=== PATIENT | male | born 1950 | race Two or more races ===

== ENCOUNTER 2024-08-05 21:29 | Emergency (ER) | payer OTHER ==
[~2024-08-05] VITALS: Ht 172.7 cm; Wt 84.0 kg
[2024-08-05 22:00] VITALS: TEMP 98
--- NOTE | 2024-08-05 22:10 | ED.PDOC ---
History of Present Illness HPI Comments 74 y/o MGUILHERME presents to the ED for CC of ear bleeding. EMS reports, patient is coming from home where he complains of uncontrollable bleeding from the right ear at a site where the patient had a Mohs procedure performed several days ago.. 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 EMS endorses, approximately 100mL of blood loss. Patient denies dizziness or weakness. No other symptoms or modifying factors present at this time. Patient arrives with a mildly active bleed. Chief Complaint: Laceration Time Seen by MD: 22:00 Reviewed Notes: Nurses Notes, Head Animal Trainer Notes, Medications, Allergies Allergies: Coded Allergies: Ceftriaxone (Verified Allergy, Unknown, 08/05/24) Cephalexin (Verified Allergy, Unknown, 08/05/24) Information Source: Patient, Emergency Med Personnel Mode of Arrival: EMS Severity: Moderate Timing: Minutes Duration: Since onset Prehospital treatment: None Past Medical History PAST MEDICAL HISTORY: Cancer Surgical History: Denies all surgeries Family History Family History: Unknown Social History Smoker: Non-Smoker Alcohol: Denies ETOH Use Drugs: Denies Drug Use Lives In: Home Constitutional: denies: chills, diaphoresis, fatigue, fever, malaise, sweats, weakness, others EENTM: reports: ear bleeding; denies: blurred vision, double vision, ear discharge, ear drainage, ear pain, ear ringing, eye pain, eye redness, hearing loss, mouth pain, mouth swelling, nasal discharge, nose bleeding, nose congestion, nose pain, photophobia, tearing, throat pain, throat swelling, voice changes, others Respiratory: denies: cough, hemoptysis, orthopnea, SOB at rest, shortness of breath, SOB with excertion, stridor, wheezing, others Cardiovascular: denies: chest pain, dizzy spells, diaphoresis, Dyspnea on exertion, edema, irregular heart beat, left arm pain, lightheadedness, palpitations, PND, syncope, others Gastrointestinal: denies: abdomen distended, abdominal pain, blood streaked bowels, constipated, diarrhea, dysphagia, difficulty swallowing, hematemesis, melena, nausea, poor appetite, poor fluid intake, rectal bleeding, rectal pain, vomiting, others Genitourinary: denies: burning, dysuria, flank pain, frequency, hematuria, incontinence, penile discharge, penile sore, pain, testicle pain, testicle swelling, urgency, others Neurological: denies: dizziness, fainting, headache, left sided numbness, left sided weakness, numbness, paresthesia, pre-existing deficit, right sided numbness, right sided weakness, seizure, speech problems, tingling, tremors, weakness, others Musculoskeletal: denies: back pain, gout, joint pain, joint swelling, muscle pain, muscle stiffness, neck pain, others Integumetry: denies: bruises, change in color, change in hair/nails, dryness, laceration, lesions, lumps, rash, wounds, others Allergic/Immunocompromised: denies: Difficulty Healing, Frequent Infections, Hives, Itching, others Hematologic/Lymphatic: denies: anemia, blood clots, easy bleeding, easy bruising, swollen glands, others Endocrine: denies: excessive hunger, excessive sweating, excessive thirst, excessive urination, flushing, intolerance to cold, intolerance to heat, unexplained weight gain, unexplained weight loss, others Psychiatric: denies: anxiety, bipolar disorder, depression, hopeless, panic disorder, schizophrenia, sleepless, suicidal, others All Other Systems: Reviewed and Negative Physical Exam General Appearance: Mild Distress (Moderate distress due to active bleeding at a postsurgical site.), Normal HEENT: Other (We attempted to control bleeding with pressure bandage to the right ear, but the patient has a small capillary that has pulsing and therefore, additional intervention in his required.) Neck: Full Range of Motion, Non-Tender, Normal, Normal Inspection Respiratory: Chest Non-Tender, Lungs Clear, No Accessory Muscle Use, No Respiratory Distress, Normal Breath Sounds Cardiovascular: No Edema, No JVD, No Murmur, No Gallop, Normal Peripheral Pulses, Regular Rate/Rhythm Breast Exam: Deferred Gastrointestinal: No Organomegaly, Non Tender, No Pulsatile Mass, Normal Bowel Sounds, Soft Genitalia: Deferred Pelvic: Deferred Rectal: Deferred Extremities: No calf tenderness, Normal capillary refill, Normal inspection, Normal range of motion, Non-tender, No pedal edema Neurologic: Alert, No Motor Deficits, Normal Affect, Normal Mood, No Sensory Deficits Cerebellar Function: Normal Reflexes: Normal Skin: Dry, Normal Color, Warm Lymphatic: No Adenopathy Was a procedure done? Was a procedure done?: Yes Sedation Sedation?: No Other Procedure Notes 3 cc of 1% lidocaine was utilized at the superior aspect of the right auricle for local anesthesia. We initially attempted to do a electric cauterization of the arterial only, but we were unable to secure occlusion. I had to default into a tie off of the arterial only with two sutures. 95% bleeding was c ontrolled. Ear was packed and the head was wrapped. Patient tolerated procedure well. Differential Dx Considerations may include: post operative complication, electrolyte abnormality, sepsis X-Ray, Labs, Meds, VS Vital Signs Date Time Temp Pulse Resp B/P (MAP) Pulse Ox O2 Delivery O2 Flow Rate FiO2 08/05/24 23:31 65 14 137/68 (91) 92 08/05/24 23:20 194/78 08/05/24 23:00 65 12 149/71 (97) 92 08/05/24 22:31 192/93 08/05/24 22:00 66 12 192/93 (126) 94 08/05/24 21:36 98.3 58 18 217/97 (137) 97 98.3 Lab Test 08/06/24 00:20 08/05/24 23:30 08/05/24 22:05 Range/Units Lactic Acid Level 2.5 *H 2.3 *H 0.4-2.0 mmol/L Urine Color Colorless Yellow Urine Clarity Clear Clear Urine pH 5.0 5.0-9.0 Urine Specific [place] 1.008 1.001-1.035 Urine Protein Negative Negative Urine Ketones Negative Negative Urine Blood Negative Negative /uL Urine Nitrite Negative Negative Urine Bilirubin Negative Negative Urine Urobilinogen Normal Negative mg/dL Urine Leukocyte Esterase Trace Negative /uL Urine RBC <1 0 - 3 /hpf Urine Microscopic WBC 15 H 0-3 /HPF Urine Squamous Epithelial Cells None seen <5 /hpf Urine Bacteria None seen None Seen /hpf Urine Glucose 3+ H Normal mg/dL White Blood Count 11.6 H 4.4-10.8 10^3/uL Red Blood Count 4.95 4.5-5.90 10^6/uL Hemoglobin 15.3 13.5-17.5 g/dL Hematocrit 44.3 41.0-53.0 % Mean Corpuscular Volume 89.6 80.0-100.0 fL Mean Corpuscular Hemoglobin 31.0 28.0-32.0 pg Mean Corpuscular Hemoglobin Concent 34.6 32.0-36.0 g/dL Red Cell Distribution Width 13.2 11.8-14.3 % Platelet Count 192 140-450 10^3/uL Mean Platelet Volume 6.7 L 6.9-10.8 fL Neutrophils (%) (Auto) 46.5 37.0-80.0 % Lymphocytes (%) (Auto) 40.0 10.0-50.0 % Monocytes (%) (Auto) 10.0 0.0-12.0 % Eosinophils (%) (Auto) 2.5 0.0-7.0 % Basophils (%) (Auto) 1.0 0.0-2.0 % Neutrophils # (Auto) 5.4 1.6-8.6 10 ^3/uL Lymphocytes # (Auto) 4.6 0.4-5.4 10 ^3/uL Monocytes # (Auto) 1.2 0-1.3 10 ^3/uL Eosinophils # (Auto) 0.3 0-0.8 10 ^3/uL Basophils # (Auto) 0.1 0-0.2 10 ^3/uL Nucleated Red Blood Cells 0.1 % Sodium Level 137 136-145 mmol/L Potassium Level 4.2 3.5-5.1 mmol/L Chloride Level 104 98-107 mmol/L Carbon Dioxide Level 24 20-31 mmol/L Anion Gap 9 5-15 Blood Urea Nitrogen 24 H 9-23 mg/dL Creatinine 1.33 H 0.700-1.30 mg/dL Glomerular Filtration Rate Calc 55 >90 mL/min BUN/Creatinine Ratio 18.0 10.0-20.0 Serum Glucose 209 H 74-106 mg/dL Calcium Level 9.8 8.7-10.4 mg/dL Total Bilirubin 0.6 0.2-1.0 mg/dL Aspartate Amino Transferase (AST) 23 13-40 U/L Alanine Aminotransferase (ALT) 41 H 7-40 U/L Alkaline Phosphatase 59 46-116 U/L Troponin I High Sensitivity 10 </=54 ng/L B-Type Natriuretic Peptide 102.35 0-100 pg/mL Total Protein 7.2 5.7-8.2 g/dL Albumin 4.7 3.2-4.8 g/dL Lipase 213 H 12-53 U/L Current Medications Medications (Trade) Dose Ordered Sig/Tone Route Start Time Stop Time Status Last Admin Clonidine HCl (Catapres Tablet) 0.2 mg ONCE ONCE PO 08/05/24 22:00 08/05/24 22:01 DC 08/05/24 22:31 Hydralazine HCl (Apresoline Injection) 10 mg ONCE ONCE IV 08/05/24 23:15 08/05/24 23:16 DC 08/05/24 23:20 Sodium Chloride 1,000 ml @ 1,000 mls/hr Q1H ONCE IV 08/05/24 23:15 08/06/24 00:14 DC 08/05/24 23:19 X-Ray, Labs, Meds, VS Comment All studies performed the ED were evaluated by me personally. While we were able to secure the ear concerns, patient's laboratories revealed a significant pancreatitis with a an elevated lipase of 200. Elevated lactic acid and what appears to be in acute renal injury issue. Patient will be transferred to [place] for continued evaluation and management. Patient is a [place] patient and therefore, spoke with Dr. Cervantes. Advised him of patient presentation as we ll as laboratory discovering. He agreed to accept the patient is a transfer. Authorization number [id number]. Time of 1ST Reevaluation: 01:00 Reevaluation 1ST: Improved Consultation: PCP, Other (Nephrology) Patient Education/Counseling: Diagnosis, Treatment Family Education/Counseling: Diagnosis, Treatment, No Family Present Sepsis Sepsis Reasesment Focused Exam Orders: Laboratory Tests 08/05/24 22:05: Lactic Acid Level 2.3 08/06/24 00:20: Lactic Acid Level 2.5 Departure 1 Departure Time of Disposition: 01:00 Impression: Primary Impression: Postoperative bleeding from incision Additional Impressions: Pancreatitis Acute renal injury Elevated lactic acid level Disposition: 02 SHORT TERM HOSPITAL Condition: Stable Discharged With: Self Critical Care Note Critical Care Time?: No Stability Stability form required: No Heart Score Heart Score: Heart Score Response (Comments) Value History N/A 0 EKG N/A 0 Age N/A 0 Risk Factors N/A 0 Troponin N/A 0 Total 0 I personally scribed for ELENI LOZANO PAC ([email or web address]) on 08/05/24 at 22:10. Electronically submitted by Renetta [email or web address]). ELENI LOZANO PAC August 05, 2024 22:10
[2024-08-05 22:17] LABS: Basophils # (auto) 0.1 10 ^3/uL (0-0.2); Eosinophils # (auto) 0.3 10 ^3/uL (0-0.8); Eosinophils % (auto) 2.5 % (0.0-7.0); Hematocrit 44.3 % (41.0-53.0); Hemoglobin 15.3 g/dL (13.5-17.5); Lymphocytes # (auto) 4.6 10 ^3/uL (0.4-5.4); Mean Corpuscular Hgb Conc. 34.6 g/dL (32.0-36.0); Mean Corpuscular Volume 89.6 fL (80.0-100.0); Monocytes # (auto) 1.2 10 ^3/uL (0-1.3); Neutrophils # (auto) 5.4 10 ^3/uL (1.6-8.6); Neutrophils % (auto) 46.5 % (37.0-80.0); Nucleated Red Blood Cells % 0.1 %; Platelet Count (auto) 192 10^3/uL (140-450); Red Blood Cells 4.95 10^6/uL (4.5-5.90); Red Cell Distribution Width 13.2 % (11.8-14.3); White Blood Cell 11.6 10^3/uL (4.4-10.8)
[2024-08-05] MEDS: cloNIDine HCL 0.1 MG TAB PO ONE (22:31)
[2024-08-05 22:34] LABS: Albumin 4.7 g/dL (3.2-4.8); Alkaline Phosphatase 59 U/L (46-116); Anion Gap 9 (5-15); Aspartate Aminotransferase 23 U/L (13-40); Bilirubin, Total 0.6 mg/dL (0.2-1.0); Calcium 9.8 mg/dL (8.7-10.4); Carbon Dioxide 24 mmol/L (20-31); Chloride 104 mmol/L (98-107); Potassium 4.2 mmol/L (3.5-5.1); Sodium 137 mmol/L (136-145); Total Protein 7.2 g/dL (5.7-8.2)
[2024-08-05 22:49] LABS: Alanine Aminotransferase 41 U/L (7-40); Blood Urea Nitrogen 24 mg/dL (9-23); Glucose 209 mg/dL (74-106); Lipase 213 U/L (12-53)
[2024-08-05 22:54] LABS: Lactic Acid w/Reflex 2.3 mmol/L (0.4-2.0)
[2024-08-05] MEDS: SODIUM CHLORIDE 0.9% 1,000 ML IV ONE (23:19)
[2024-08-05] MEDS: hydrALAZINE HCL 20 MG/ML VL IV ONE (23:20)
[2024-08-05 23:46] LABS: Urine Bacteria None Seen /hpf (None Seen)
[2024-08-06 00:16] LABS: Urine Blood Negative /uL (Negative); Urine Clarity Clear (Clear); Urine Color Colorless (Yellow); Urine Protein, UAD Negative (Negative); Urine Specific Gravity 1.008 (1.001-1.035); Urine Squamous Epithelial Cell None Seen /hpf (<5); Urine Urobilinogen Normal (Negative); Urine WBC 15 /HPF (0-3)
[2024-08-06 00:30] VITALS: PULSE 85; RESP 14; O2SAT 98
[2024-08-06 03:00] VITALS: BP 126/82; PULSE 66; RESP 16; O2SAT 96
== END 2024-08-06 03:15 | disposition home or self-care (01) ==
LOC: EDBD 21:29 → ER 21:38
DX: H95.42 Postprocedural hemorrhage of ear and mastoid process following other procedure (principal); N17.9 Acute kidney failure, unspecified; K85.90 Acute pancreatitis without necrosis or infection, unspecified; R74.02 Elevation of levels of lactic acid dehydrogenase [LDH]; Z85.828 Personal history of other malignant neoplasm of skin; Z88.1 Allergy status to other antibiotic agents; Z88.8 Allergy status to other drugs, medicaments and biological substances
CPT/HCPCS: 36415; 80053; 81001; 83605; 83690; 83880; 84484; 85025; 96361; 96374; 99285; J0360; J7030